=== PATIENT | female | born 1985 | race American Indian/Alaskan Native ===

== ENCOUNTER 2020-05-30 21:16 | Emergency (ER) | payer SELFPAY ==
[2020-05-30] MEDS ORDERED: HALOPERIDOL LACTATE 5 MG/1 ML INJ IM PRN (21:45)
[2020-05-30] MEDS ORDERED: levETIRAcetam 500 MG/5 ML ORAL LIQD PO ONE (21:46)
--- NOTE | 2020-05-30 21:59 | Emergency Department Report ---
<SHI BUTT - Last Filed: 05/31/20 04:55> ED General Adult HPI - General Chief complaint: Seizure Stated complaint: PSYCH EVAL PUI?: No Time Seen by Provider: 05/30/20 21:35 Source: patient, EMS ( EMS documentation not available at time of chart dictation ), RN notes reviewed Mode of arrival: Stretcher Limitations: Other (Patient is intoxicated disorganized and a poor historian) - History of Present Illness Initial comments: The patient was evaluated in the emergency department for symptoms described in the history of present illness. He/she was evaluated in the context of the global COVID-19 pandemic, which necessitated consideration that the patient might be at risk for infection with the virus that causes COVID-19. Institutional protocols and algorithms that pertain to the evaluation of patients at risk for COVID-19 are in a state of rapid change based on information released by regulatory bodies including the CDC and federal and state organizations. These policies and algorithms were followed during the patient's care in the emergency department. Please note that these policies, procedures and recommendations changed on a rapid basis. During the entire history and physical examination, I am chaperoned by nurse Selin Purvis The patient is a 35-year-old female. She is not known to myself previously. She is brought to the hospital by emergency medical services because of a possible seizure/convulsion. The patient states that she is not , and reports that she has not delivered or given in the past 6 months. Patient states that she has a history of seizures and depression. The patient thinks that she had a seizure but she is not sure. She thinks that she called 911 because she was trying to "get to the train station, and I did not have any money to get there." Patient denies physical pain. The patient has made some passive comments about wanting to harm herself. She is not forthcoming about this. She states she does not want to overdose. She states that she does not want to hurt other people. The patient is intoxicated and a poor historian, and therefore, has difficulty describing the exacerbating, relieving factors of her current presentation. The patient is not accompanied by friends or family at this time for additional information or collateral information. -: This evening Radiation: other Quality: other Consistency: other Improves with: other Worsens with: other Associated Symptoms: other - Related Data Home Medications Medication Instructions Recorded Confirmed Last Taken Gabapentin 300 mg PO BID 05/30/20 05/30/20 Unknown Zoloft 05/30/20 Unknown hydrOXYzine 50 mg PO BID PRN 05/30/20 05/30/20 Unknown levETIRAcetam [Keppra TAB] 750 mg PO BID 05/30/20 05/30/20 05/30/20 1000 traZODone [Desyrel] 50 mg PO QHS 05/30/20 05/30/20 Unknown Previous Rx's Medication Instructions Recorded Last Taken Type Multivitamin with Folic Acid [[facility] 400 mcg PO QDAY #30 tablet 05/30/20 Unknown Rx One Daily Essential Tablet] Potassium Chloride 20 meq PO QDAY #30 packet 05/30/20 Unknown Rx levETIRAcetam [Keppra TAB] 750 mg PO BID #60 tablet 05/30/20 Unknown Rx Allergies Allergy/AdvReac Type Severity Reaction Status Date / Time No Known Allergies Allergy Verified 05/30/20 21:50 ED Review of Systems Constitutional: see HPI Eyes: as per HPI ENT: as per HPI Respiratory: see HPI Cardiovascular: as per HPI Endocrine: see HPI Gastrointestinal: as per HPI Genitourinary: as per HPI Musculoskeletal: as per HPI Skin: as per HPI Neurological: as per HPI Psychiatric: as per HPI Hematological/Lymphatic: as per HPI ED Past Medical Hx - Past Medical History Previous Medical History?: Yes Hx Psychiatric Treatment: Yes (PTSD, ANXIETY, DEPRESSION) - Surgical History Past Surgical History?: No - Social History Smoking Status: Current Every Day Smoker Substance Use Type: Alcohol, Marijuana - Medications Home Medications: Home Medications Medication Instructions Recorded Confirmed Last Taken Type Gabapentin 300 mg PO BID 05/30/20 05/30/20 Unknown History Multivitamin with Folic Acid [[facility] 400 mcg PO QDAY #30 tablet 05/30/20 Unknown R x One Daily Essential Tablet] Potassium Chloride 20 meq PO QDAY #30 packet 05/30/20 Unknown Rx Zoloft 05/30/20 Unknown History hydrOXYzine 50 mg PO BID PRN 05/30/20 05/30/20 Unknown History levETIRAcetam [Keppra TAB] 750 mg PO BID 05/30/20 05/30/20 05/30/20 History 1000 levETIRAcetam [Keppra TAB] 750 mg PO BID #60 tablet 05/30/20 Unknown Rx traZODone [Desyrel] 50 mg PO QHS 05/30/20 05/30/20 Unknown History ED Physical Exam - General Limitations: Other (Intoxication, disorganized behavior, patient is a poor historian) General appearance: alert, appears intoxicated, anxious - Head Head exam: Present: atraumatic, normocephalic - Eye Eye exam: Present: normal appearance, PERRL, EOMI - ENT ENT exam: Present: normal exam, normal orophraynx, mucous membranes moist, normal external ear exam - Neck Neck exam: Present: normal inspection, full ROM. Absent: tenderness, meningismus - Respiratory Respiratory exam: Present: normal lung sounds bilaterally. Absent: respiratory distress - Cardiovascular Cardiovascular Exam: Present: regular rate, normal rhythm, normal heart sounds. Absent: bradycardia, tachycardia, irregular rhythm, systolic murmur, diastolic murmur, rubs, gallop - GI/Abdominal GI/Abdominal exam: Present: soft. Absent: distended, tenderness, guarding, rebound, rigid, pulsatile mass - Extremities Exam Extremities exam: Present: normal inspection, full ROM, other (2+ pulses noted in the bilateral upper and lower extremities. There is no palpable cord. negative Homans sign. Muscular compartments are soft. The pelvis is stable.). Absent: pedal edema, calf tenderness - Back Exam Back exam: Present: normal inspection. Absent: tenderness, CVA tenderness (R), CVA tenderness (L), paraspinal tenderness, vertebral tenderness - Neurological Exam Neurological exam: Present: other (No facial droop. Tongue midline. Extraocular movements intact bilaterally. Facial sensation intact to light touch in V1, V2, V3 distribution bilaterally. 5 and a 5 strength in 4 extremities. Sensation intact to light touch in 4 extremities.) - Psychiatric Psychiatric exam: Present: depressed, anxious - Skin Skin exam: Present: warm, dry, intact, normal color. Absent: rash ED Course - Reevaluation(s) Reevaluation #1: 05/30/20 22:46 Differential diagnosis, including but not limited to: Seizure, pseudoseizure, alcohol intoxication, drug-induced psychosis/disorganized behavior, intracranial injury, cervical spine injury Assessment and plan: 35-year-old female who is intoxicated, lacks decision- making capacity, who is no evidence of blunt or penetrating physical trauma on her examination, with reported history of seizure and/or convulsion. She also has endorsed nonspecific desire to harm herself. Patient is placed on hold status. Laboratory studies are reviewed and appreciated. We will continue patient's home anticonvulsant medications. Given history of seizure/convulsion, which is not corroborated by witness, we will obtain a CT scan of the brain and cervical spine, given patient's alcohol intoxication. We will replete the patient's potassium. Patient will be placed on seizure precautions, and have every 4 hour Accu-Cheks. A psychiatric consultation is requested. Urinalysis is pending. I anticipate that the patient's objective CT imaging will be negative for acute findings. I also anticipate that once the patient becomes clinically sober, if she is no longer articulating desire to harm herself, she may be discharged to follow-up with an outpatient primary care doctor. Psychiatry input is appreciated, their evaluation is pending at this time Reevaluation #2: 05/31/20 00:17 CT scan of the brain and cervical spine negative for acute findings. Patient resting comfortably in stretcher, and in no acute distress. No further convulsive events noted. Vital signs remained stable Urinalysis is pending at this time Reevaluation #3: 05/31/20 04:55 Patient reassessed multiple times. She has been sleeping comfortably in her stretcher for hours without clinical deterioration. No further convulsive events have been noted. We are awaiting a psychiatric evaluation Patient continues to remain medically suitable for psychiatric evaluation, consultation and placement, or, if they feel that the patient does not meet criteria for 1013, discharge once clinically sober ED Medical Decision Making - Lab Data Result diagrams: 05/30/20 21:55 05/30/20 21:55 Vital Signs 05/30/20 22:20 Temperature 97.9 F Pulse Rate 92 H Respiratory 18 Rate Blood Pressure 147/109 [Left] O2 Sat by Pulse 99 Oximetry Lab Results 05/30/20 05/30/20 05/30/20 Range/Units 21:55 21:55 21:55 WBC 5.3 (4.5-11.0) K/mm3 RBC 4.24 (3.65-5.03) M/mm3 Hgb 12.3 (10.1-14.3) gm/dl Hct 35.9 (30.3-42.9) % MCV 85 (79-97) fl MCH 29 (28-32) pg MCHC 34 (30-34) % RDW 15.5 H (13.2-15.2) % Plt Count 236 (140-440) K/mm3 Sodium 140 (137-145) mmol/L Potassium 3.2 L (3.6-5.0) mmol/L Chloride 99.2 (98-107) mmol/L Carbon Dioxide 23 (22-30) mmol/L Anion Gap 21 mmol/L BUN 5 L (7-17) mg/dL Creatinine 0.8 (0.6-1.2) mg/dL Estimated GFR > 60 ml/min BUN/Creatinine Ratio 6 % Glucose 80 (65-100) mg/dL Calcium 9.6 (8.4-10.2) mg/dL Magnesium 2.20 (1.7-2.3) mg/dL Total Creatine Kinase 288 H (30-135) units/L Salicylates 1.0 L (2.8-20.0) mg/dL Acetaminophen (10.0-30.0) ug/mL Plasma/Serum Alcohol (0-0.07) % 05/30/20 05/30/20 Range/Units 21:55 21:55 WBC (4.5-11.0) K/mm3 RBC (3.65-5.03) M/mm3 Hgb (10.1-14.3) gm/dl Hct (30.3-42.9) % MCV (79-97) fl MCH (28-32) pg MCHC (30-34) % RDW (13.2-15.2) % Plt Count (140-440) K/mm3 Sodium (137-145) mmol/L Potassium (3.6-5.0) mmol/L Chloride (98-107) mmol/L Carbon Dioxide (22-30) mmol/L Anion Gap mmol/L BUN (7-17) mg/dL Creatinine (0.6-1.2) mg/dL Estimated GFR ml/min BUN/Creatinine Ratio % Glucose (65-100) mg/dL Calcium (8.4-10.2) mg/dL Magnesium (1.7-2.3) mg/dL Total Creatine Kinase (30-135) units/L Salicylates (2.8-20.0) mg/dL Acetaminophen 5.0 L (10.0-30.0) ug/mL Plasma/Serum Alcohol 0.22 H (0-0.07) % Vital Signs 05/30/20 05/30/20 05/30/20 22:18 22:20 22:30 Temperature 97.9 F Pulse Rate 90 92 H 94 H Respiratory 15 18 19 Rate Blood Pressure 147/109 Blood Pressure 147/109 [Left] O2 Sat by Pulse 100 99 Oximetry 05/30/20 05/30/20 05/30/20 22:46 23:00 23:22 Temperature Pulse Rate 87 88 89 Respiratory 14 21 Rate Blood Pressure 147/109 Blood Pressure [Left] O2 Sat by Pulse 93 95 Oximetry 05/30/20 05/30/20 05/31/20 23:30 23:46 00:00 Temperature Pulse Rate 90 86 91 H Respiratory 19 Rate Blood Pressure 130/96 Blood Pressure [Left] O2 Sat by Pulse 98 100 96 Oximetry - EKG Data -: EKG Interpreted by Tx EKG shows normal: sinus rhythm Rate: normal - EKG Data When compared to previous EKG there are: previous EKG unavailable 05/30/20 23:32 Sinus rhythm, 90 bpm, left axis deviation, left anterior fascicular block, UTC prolonged, abnormal EKG, the EKG is not a STEMI. There is no prior EKG available for comparison - Radiology Data Radiology results: pending, report reviewed, image reviewed ED Disposition Clinical Impression: History of convulsions, Hypokalemia, Suicidal ideation Alcohol intoxication Qualifiers: Complication of substance-induced condition: uncomplicated Qualified Code(s): F10.920 - Alcohol use, unspecified with intoxication, uncomplicated Disposition: DC/TX-70 ANOTHER TYPE HLTHCARE Condition: Stable Additional Instructions: Do not drive or operate motor vehicles for the next 6 months. Follow-up with a primary care doctor or neurologist within the next 7 to 10 days. Avoid/minimize consumption of alcohol, and recreational drugs. Please make certain to take Keppra medication for convulsions/seizures. Noncompliance with Keppra/seizure medication may result in breakthrough seizure, which may lead to , disability, paralysis, loss of quality of life. Consumption of alcohol may impair decision-making, and can lower seizure threshold, and may lead to , disability, paralysis, loss of quality of life. Take an [id number] multivitamin with folic acid. Take the potassium supplementation as directed. Return to the emergency room right away with new, worsened or different symptoms, or symptoms not present on the initial emergency room evaluation. Next Prescriptions: Multivitamin with Folic Acid [Cvs One Daily Essential Tablet] 400 mcg PO QDAY #30 tablet levETIRAcetam [Keppra TAB] 750 mg PO BID #60 tablet Potassium Chloride 20 meq PO QDAY #30 packet Referrals: LEONARDO PARRA MD [Staff Physician] - 3-5 Days [facility] [Provider Group] - 3-5 Days <RADHA FROST - Last Filed: 05/31/20 14:41> ED Review of Systems ROS: Stated complaint: PSYCH EVAL Other details as noted in HPI ED Course Vital Signs 05/30/20 05/30/20 05/30/20 22:18 22:20 22:30 Temperature 97.9 F Pulse Rate 90 92 H 94 H Respiratory 15 18 19 Rate Blood Pressure 147/109 Blood Pressure 147/109 [Left] O2 Sat by Pulse 100 99 Oximetry 05/30/20 05/30/20 05/30/20 22:46 23:00 23:01 Temperature Pulse Rate 87 88 Respiratory 14 21 Rate Blood Pressure 147/109 149/100 Blood Pressure [Left] O2 Sat by Pulse 93 95 Oximetry 05/30/20 05/30/20 05/30/20 23:22 23:30 23:46 Temperature Pulse Rate 89 90 86 Respiratory 19 Rate Blood Pressure Blood Pressure [Left] O2 Sat by Pulse 98 100 Oximetry 05/31/20 05/31/20 05/31/20 00:00 00:02 00:16 Temperature Pulse Rate 91 H 87 88 Respiratory 21 Rate Blood Pressure 130/96 130/96 149/100 Blood Pressure [Left] O2 Sat by Pulse 96 97 98 Oximetry 05/31/20 05/31/20 05/31/20 00:30 00:46 01:00 Temperature Pulse Rate 90 96 H 99 H Respiratory 21 22 21 Rate Blood Pressure 111/70 111/70 119/70 Blood Pressure [Left] O2 Sat by Pulse 98 98 97 Oximetry 05/31/20 05/31/20 05/31/20 01:16 01:30 01:46 Temperature Pulse Rate Respiratory 21 21 Rate Blood Pressure 130/96 112/65 111/64 Blood Pressure [Left] O2 Sat by Pulse 98 98 97 Oximetry 05/31/20 05/31/20 05/31/20 02:00 02:30 03:00 Temperature Pulse Rate 102 H 98 H Respiratory 20 Rate Blood Pressure 116/73 108/73 Blood Pressure [Left] O2 Sat by Pulse 97 98 96 Oximetry 05/31/20 05/31/20 05/31/20 03:05 03:30 04:00 Temperature 97.4 F L Pulse Rate 101 H 99 H 97 H Respiratory 20 21 23 Rate Blood Pressure 108/73 111/72 Blood Pressure 116/73 [Left] O2 Sat by Pulse 98 96 97 Oximetry 05/31/20 05/31/20 05/31/20 04:30 05:00 05:30 Temperature Pulse Rate 97 H 93 H 88 Respiratory 22 20 22 Rate Blood Pressure 111/72 109/67 109/67 Blood Pressure [Left] O2 Sat by Pulse 95 96 96 Oximetry 05/31/20 05/31/20 05/31/20 06:00 06:30 07:38 Temperature 97.8 F Pulse Rate 92 H 92 H 69 Respiratory 20 22 20 Rate Blood Pressure 115/78 115/78 Blood Pressure 107/64 [Left] O2 Sat by Pulse 96 97 98 Oximetry - Reevaluation(s) Reevaluation #4: 05/31/20 14:37 Patient has been seen and evaluated by mental health security control assessor. Request has been made to place patient on 1013 based on the fact that patient is reporting suicidal ideations. ED Medical Decision Making - Lab Data Result diagrams: 05/30/20 21:55 05/30/20 21:55 Critical care attestation.: If time is entered above; I have spent that time in minutes in the direct care of this critically ill patient, excluding procedure time. ED Disposition Is pt being admited?: No
[2020-05-30] MEDS ORDERED: levETIRAcetam 500 MG TAB PO SCH (22:00)
[2020-05-30 22:24] LABS: Hematocrit 35.9 % (30.3-42.9); Hemoglobin 12.3 gm/dl (10.1-14.3); Mean Corpuscular HGB Conc 34 % (30-34); Mean Corpuscular Volume 85 fl (79-97); Platelet Count 236 K/mm3 (140-440); Red Blood Count 4.24 M/mm3 (3.65-5.03); Red Cell Distribution Width 15.5 % (13.2-15.2)
[2020-05-30 22:35] LABS: BUN/Creatinine Ratio 6; Blood Urea Nitrogen 5 mg/dL (7-17); Calcium 9.6 mg/dL (8.4-10.2); Hemolysis Index 5
[2020-05-30] MEDS ORDERED: POTASSIUM CHLORIDE ER 20 MEQ TAB PO ONE (22:41)
[2020-05-30] MEDS ORDERED: HYDROXYZINE 50 MG PO PRN (22:42)
[2020-05-30 22:47] LABS: Bilirubin,Urine NEG (Negative); Blood,Urine SM (Negative); Color,Urine Colorless (Yellow); Protein,Urine <15 mg/dL mg/dL (Negative); Urobilinogen,Urine < 2.0 mg/dL (<2.0); WBC,Urine < 1.0 /HPF (0.0-6.0)
[2020-05-30 22:52] LABS: Amphetamine Screen,Urine PRESUMPTIVE NEGATIVE; Benzodiazepines Screen,Urine PRESUMPTIVE NEGATIVE; Cannabinoid Screen,Urine PRESUMPTIVE NEGATIVE; Cocaine Screen,Urine PRESUMPTIVE NEGATIVE; Methadone Screen,Urine PRESUMPTIVE NEGATIVE; Opiate Screen,Urine PRESUMPTIVE NEGATIVE
[2020-05-30] MEDS: LORazepam 2 MG/ML VIAL IM PRN ×2 (22:54→23:50)
--- NOTE | 2020-05-30 23:33 | Cat Scan Report ---
CT head/brain wo con INDICATION: Seizure. TECHNIQUE: Routine CT head without contrast. All CT scans at this location are performed using CT dos e reduction for ALARA by means of automated exposure control. COMPARISON: None. FINDINGS: BRAIN / INTRACRANIAL CONTENTS: No acute hemorrhage, mass effect, midline shift, or hydrocephalus. No appreciable acute large territorial or lacunar infarct. No chronic infarct or focal atrophy. Normal b rain volume and ventricular/sulcal size for age. ORBITS: No significant abnormality of visualized orbits. SINUSES / MASTOIDS: No significant abnormality of visualized sinuses and mastoid air cells. ADDITIONAL FINDINGS: None. IMPRESSION: 1. No acute intracranial abnormality. Signer Name: Holden Neff MD Signed: 05/30/2020 11:28 PM Workstation Name: [id number]
--- NOTE | 2020-05-30 23:34 | Cat Scan Report ---
CT CERVICAL SPINE WITHOUT CONTRAST INDICATION: Seizure. TECHNIQUE: Axial CT images of the spine were obtained. Sagittal and coronal reformatted images were produced. Al l CT scans at this location are performed using CT dose reduction for ALARA by means of automated exp osure control. COMPARISON: None available. FINDINGS: ACUTE FRACTURE(S) OR SUBLUXATION: None. SPINAL DEGENERATIVE CHANGES: No significant degenerative changes. PARASPINAL SOFT TISSUES: No soft tissue swelling or other acute abnormalities. ADDITIONAL FINDINGS: No significant additional findings. IMPRESSION: 1. No acute fracture or subluxation in the spine in neutral position. Signer Name: Holden Neff MD Signed: 05/30/2020 11:29 PM Workstation Name: [id number]
[2020-05-31] MEDS ORDERED: NON-FORMULARY EACH (Levetiracetam [Keppra Tab] 750 MG) PO SCH (10:00)
[2020-05-31] MEDS: POTASSIUM CHLORIDE ER 20 MEQ TAB PO SCH (10:30)
[2020-05-31] MEDS: levETIRAcetam 500 MG TAB PO SCH ×2 (10:31→21:34)
[2020-05-31] MEDS: MULTIVITAMINS ,THERAPEUTIC TAB PO SCH (10:31)
[2020-05-31] MEDS: FOLIC ACID 1 MG TAB PO SCH (10:31)
[2020-06-01] MEDS: LORazepam 2 MG/ML VIAL IM PRN (07:49)
[2020-06-01] MEDS: MULTIVITAMINS ,THERAPEUTIC TAB PO SCH (09:44)
[2020-06-01] MEDS: levETIRAcetam 500 MG TAB PO SCH ×2 (09:44→23:58)
[2020-06-01] MEDS: FOLIC ACID 1 MG TAB PO SCH (09:45)
[2020-06-01] MEDS: POTASSIUM CHLORIDE ER 20 MEQ TAB PO SCH (09:48)
--- NOTE | 2020-06-01 09:57 | Consultation ---
History of Present Illness - Reason for Consult Consult date: 06/01/20 Reason for consult: suicidal thoughts - History of Present Psychiatric Illness Gabbi Maravilla is a 35y/o female patient who was said to have been brought to the ER after having seizure-like activity and thought she called 911 trying to get to a train station. During my interview with the patient she is sleeping. She arouses easily, but is uncooperative. She initially refuses to answer any questions. I had to leave and return and speak to the patient after she was awakened for breakfast. The patient makes poor eye contact. Her affect is flat. She is guarded and slow to respond. She is still reluctant to cooperate and has to be asked the same question several times. She says "why am I being asked the same questions again." She says she came to the ER for "having bad thoughts of hurting myself." She says "because I have seizures." She says she feels "depressed because of everything going on." She would not elaborate about what was going on. The patient states, "I'm just tired of living." She denies any illicit drug use, but states she drinks "sometimes." She states she has a past history of "depression and PTSD." The patient states she takes "zoloft and hydroxizine." She denies hallucinations of any kind. PAST PSYCHIATRIC HISTORY: Psychiatric Diagnoses: PTSD, Depression Suicide attempts or Self-harm behavior: Denies Prior psychiatric hospitalizations: Denies Substance Abuse history: Denies Previous psychiatric medications tried: Zoloft, hydroxizine Outpatient treatment: yes PAST MEDICAL HISTORY: Family Psychiatric History: None reported or documented SOCIAL HISTORY Marital Status: Single Living Arrangements: with sister Employment Status: Unemployed Access to guns/weapons: Denies Education: High school grad History of Abuse: none reported Legal History: Denies REVIEW OF SYSTEMS Constitutional: Negative for weight loss ENT: Negative for stridor Respiratory: Negative for cough or hemoptysis All other systems reviewed and are negative MENTAL STATUS EXAMINATION General Appearance: Dressed appropriately Behavior: Guarded, uncooperative Mood: "depressed" Affect and affective range: Flat Thought Process: goal directed Speech: low tone, slow to respond Suicidal Ideation: Yes Homicidal Ideation: Denies Hallucinations: Denies Delusions: None elicited Insight and Judgment: Limited Memory/Cognition: Limited Impulse control: Limited Attention: Normal Orientation: Alert, oriented x 3 Assessment Major Depressive Disorder, Severe w/o Psychotic Features PLAN 1013 Continue Hydroxizine 50mg po BID prn anxiety Start Trazodone 50mg po qhs Start Abilify 5mg po daily Start Zoloft 25mg po daily Sitter: Defer to primary Medical: Per primary Disposition: Recommend acute inpatient treatment Will follow. Thank you for this consult Medications and Allergies Allergies Allergy/AdvReac Type Severity Reaction Status Date / Time No Known Allergies Allergy Verified 05/30/20 21:50 Home Medications Medication Instructions Recorded Confirmed Last Taken Type Gabapentin 300 mg PO BID 05/30/20 05/30/20 Unknown History Multivitamin with Folic Acid [[facility] 400 mcg PO QDAY #30 tablet 05/30/20 Unknown Rx One Daily Essential Tablet] Potassium Chloride 20 meq PO QDAY #30 packet 05/30/20 Unknown Rx Zoloft 50 mg PO DAILY 05/30/20 06/01/20 Unknown History hydrOXYzine 50 mg PO BID PRN 05/30/20 05/30/20 Unknown History levETIRAcetam [Keppra TAB] 750 mg PO BID 05/30/20 05/30/20 05/30/20 History 1000 levETIRAcetam [Keppra TAB] 750 mg PO BID #60 tablet 05/30/20 Unknown Rx traZODone [Desyrel] 50 mg PO QHS 05/30/20 05/30/20 Unknown History Active Meds: Active Medications Folic Acid (Folvite) 1 mg PO QDAY [facility] Last Admin: 06/01/20 09:45 Dose: 1 mg Documented by: Haloperidol Lactate (Haldol) 5 mg IM Q6HR PRN PRN Reason: Agitation Hydroxyzine Pamoate (Vistaril) 50 mg PO BID PRN PRN Reason: Anxiety Levetiracetam (Keppra) 750 mg PO BID [facility] Last Admin: 06/01/20 09:44 Dose: 750 mg Documented by: Lorazepam (Ativan) 2 mg IM Q4HR PRN PRN Reason: Agitation Last Admin: 06/01/20 07:49 Dose: 2 mg Documented by: Multivitamins (Theragran Tab) 1 each PO QDAY [facility] Last Admin: 06/01/20 09:44 Dose: 1 each Documented by: Potassium Chloride (K-Dur) 40 meq PO QAM [facility] Last Admin: 06/01/20 09:48 Dose: 40 meq Documented by: Mental Status Exam - Vital signs Last Vital Signs Temp 98.1 F 06/01/20 07:22 Pulse 79 06/01/20 07:22 Resp 18 06/01/20 07:35 BP 118/85 06/01/20 07:22 Pulse Ox 99 06/01/20 07:35 Results Result Diagrams: 05/30/20 21:55 05/30/20 21:55 Abnormal lab results 05/31/20 06/01/20 Range/Units 16:26 02:15 POC Glucose 120 H 108 H (70-105) All other labs normal.
[2020-06-01] MEDS: SERTRALINE 25 MG TAB PO SCH (10:42)
[2020-06-01] MEDS: ARIPiprazole 5 MG TAB PO SCH (10:42)
[2020-06-01] MEDS: traZODone 50 MG TAB PO SCH (23:59)
[2020-06-02] MEDS: POTASSIUM CHLORIDE ER 20 MEQ TAB PO SCH (11:42)
[2020-06-02] MEDS: ARIPiprazole 5 MG TAB PO SCH (11:42)
[2020-06-02] MEDS: levETIRAcetam 500 MG TAB PO SCH ×2 (11:42→21:58)
[2020-06-02] MEDS: MULTIVITAMINS ,THERAPEUTIC TAB PO SCH (11:43)
[2020-06-02] MEDS: FOLIC ACID 1 MG TAB PO SCH (11:43)
[2020-06-02] MEDS: SERTRALINE 25 MG TAB PO SCH ×2 (11:46→13:00)
--- NOTE | 2020-06-02 12:10 | Progress Note ---
Subjective - Reason for Consult Consult date: 06/02/20 Reason for consult: MHE Requesting physician: SHI BUTT - Chief Complaint Chief complaint: PSYCH HPI Patient seen this AM in room, endorses persistent depressive mood, associated with thoughts of self harm. Patient also reports worsening anxiety says she takes zoloft and hydroxyzine for management. REVIEW OF SYSTEMS Constitutional: Negative for weight loss ENT: Negative for stridor Respiratory: Negative for cough or hemoptysis All other systems reviewed and are negative MENTAL STATUS EXAMINATION General Appearance and Behavior: Age appropriate,good hygiene, wearing appropriate clothes, lying in bed, poor eye contact, cooperative polite with questioning. Cooperation: Participating/engaged Psychomotor Behavior: unremarkable and within normal limits Mood: Depressed Affect and affective range: constricted, decreased range, depressed, Thought Process: Illogical Thought Content: Illogical, Speech: Normal volume, Regular rate and rhythm Intellectual Functioning: Average Suicidal Ideation: Suicidal Homicidal Ideation: Homicidal Impulse Control: Impaired Insight and Judgment: Limited insight and judgment Memory: Normal, Attention: Normal, Orientation: Alert, oriented, anxious Assessment and Plan - Patient Problems (1) Depression Current Visit: Yes Status: Acute Treatment Plan Continue current meds., zoloft increased MEDICATIONS: Risks, benefits and alternatives of medications discussed with the patient, questions answered and consent obtained from patient. PSYCHOTHERAPY: Supportive psychotherapy provided MEDICAL: Per primary team DELIRIUM PRECAUTIONS: Please re-orient patient frequently, keep lights on during the day, and minimize benzodiazepines and opiates as these medications could worsen patient's confusion. SWITCH TENDER: DISPOSITION: Recommend acute inpatient psychiatric hospitalization at this time LEGAL STATUS: 1013 FOLLOW-UP: Will follow Thank you for the consult. Please contact with any questions and/or concerns. Mental Status Exam - Vital signs Last Vital Signs Temp 98.0 F 06/02/20 07:49 Pulse 81 06/02/20 07:49 Resp 20 06/02/20 07:49 BP 128/86 06/02/20 07:49 Pulse Ox 98 06/02/20 07:49 Assessment and Plan - Patient Problems (1) Depression Current Visit: Yes Status: Acute
[2020-06-02] MEDS: LORazepam 2 MG/ML VIAL IM PRN (18:05)
[2020-06-02] MEDS: traZODone 50 MG TAB PO SCH (21:58)
[2020-06-03 07:40] VITALS: BP 122/88
[2020-06-03] MEDS: ARIPiprazole 5 MG TAB PO SCH (10:23)
[2020-06-03] MEDS: levETIRAcetam 500 MG TAB PO SCH (10:24)
[2020-06-03] MEDS: SERTRALINE 25 MG TAB PO SCH (10:25)
[2020-06-03] MEDS: MULTIVITAMINS ,THERAPEUTIC TAB PO SCH (10:25)
[2020-06-03] MEDS: FOLIC ACID 1 MG TAB PO SCH (10:26)
[2020-06-03] MEDS: POTASSIUM CHLORIDE ER 20 MEQ TAB PO SCH (10:26)
--- NOTE | 2020-06-03 11:20 | Progress Note ---
Subjective - Reason for Consult Consult date: 06/03/20 Reason for consult: MHE Requesting physician: SHI BUTT - Chief Complaint Chief complaint: PSYCH HPI Patient interviewed by me this AM, reports feeling much better, denies SI or HI and denies AVH. Patient says she still would like alcohol detox program and wants to go to the [facility] center when discharged. REVIEW OF SYSTEMS Constitutional: Negative for weight loss ENT: Negative for stridor Respiratory: Negative for cough or hemoptysis All other systems reviewed and are negative MENTAL STATUS EXAMINATION General Appearance and Behavior: Age appropriate,good hygiene, wearing appropriate clothes, lying in bed, poor eye contact, cooperative polite with questioning. Cooperation: Participating/engaged Psychomotor Behavior: unremarkable and within normal limits Mood: "im better" Affect and affective range: congruent with mood Thought Process: logical Thought Content: within reality Speech: Normal volume, Regular rate and rhythm Intellectual Functioning: Average Suicidal Ideation: denies Homicidal Ideation: denies Impulse Control: unimpaired Insight and Judgment: normal insight and judgment Memory: Normal, Attention: Normal, Orientation: Alert, oriented, anxious Assessment and Plan - Patient Problems (1) Depression Current Visit: Yes Status: Acute Treatment Plan Continue current meds., Outpt alcohol detox MEDICATIONS: Risks, benefits and alternatives of medications discussed with the patient, questions answered and consent obtained from patient. PSYCHOTHERAPY: Supportive psychotherapy provided MEDICAL: Per primary team DELIRIUM PRECAUTIONS: Please re-orient patient frequently, keep lights on during the day, and minimize benzodiazepines and opiates as these medications could worsen patient's confusion. WET SANDER: DISPOSITION: Do not recommend acute inpatient psychiatric hospitalization at this time. Safety discharge LEGAL STATUS: 1013 rescinded FOLLOW-UP: Will sign off Thank you for the consult. Please contact with any questions and/or concerns. Mental Status Exam - Vital signs Last Vital Signs Temp 98.3 F 06/03/20 07:39 Pulse 87 06/03/20 07:39 Resp 17 06/03/20 07:39 BP 122/88 06/03/20 07:39 Pulse Ox 99 06/03/20 07:39 Assessment and Plan - Patient Problems (1) Depression Status: Acute
== END 2020-06-03 13:30 | disposition home or self-care (01) ==
LOC: EEVIPCON 21:16 → ED 21:16
DX: E87.6 Hypokalemia (principal); F10.920 Alcohol use, unspecified with intoxication, uncomplicated; R56.9 Unspecified convulsions; F41.9 Anxiety disorder, unspecified; F32.9 Major depressive disorder, single episode, unspecified; F17.200 Nicotine dependence, unspecified, uncomplicated; F12.10 Cannabis abuse, uncomplicated; Z79.899 Other long term (current) drug therapy
CPT/HCPCS: 36415; 70450; 72125; 80048; 80307; 81001; 82550; 82962; 83735; 84702; 85027; 93005; 96372; 99285; J2060; J3246; 80320; G0480

== ENCOUNTER 2020-06-03 19:11 | Emergency (ER) | payer SELFPAY ==
[2020-06-03 20:18] LABS: Basophils # (Auto) 0.1 K/mm3 (0.0-0.1); Basophils % (Auto) 1.3 % (0.0-1.8); Eosinophils # (Auto) 0.1 K/mm3 (0.0-0.4); Eosinophils % (Auto) 1.1 % (0.0-4.3); Hematocrit 38.3 % (30.3-42.9); Hemoglobin 12.5 gm/dl (10.1-14.3); Lymphocytes # (Auto) 1.6 K/mm3 (1.2-5.4); Lymphocytes % (Auto) 32.2 % (13.4-35.0); Mean Corpuscular HGB Conc 33 % (30-34); Mean Corpuscular Volume 88 fl (79-97); Monocytes # (Auto) 0.4 K/mm3 (0.0-0.8); Monocytes % (Auto) 7.2 % (0.0-7.3); Platelet Count 210 K/mm3 (140-440); Red Blood Count 4.37 M/mm3 (3.65-5.03); Red Cell Distribution Width 15.6 % (13.2-15.2)
[2020-06-03 20:21] LABS: Bilirubin,Urine NEG (Negative); Blood,Urine NEG (Negative); Color,Urine Yellow (Yellow); Mucus,Urine FEW /HPF; Protein,Urine <15 mg/dL mg/dL (Negative); Urobilinogen,Urine < 2.0 mg/dL (<2.0)
[2020-06-03 20:37] LABS: Blood Urea Nitrogen 16 mg/dL (7-17); Calcium 9.7 mg/dL (8.4-10.2); Hemolysis Index 8
[2020-06-03 20:38] LABS: BUN/Creatinine Ratio 23
--- NOTE | 2020-06-03 20:49 | Emergency Department Report ---
Chief Complaint: Psych Stated Complaint: MH/SUICIDAL THOUGHTS Time Seen by Provider: 06/03/20 20:44 - HPI History of Present Illness: Chief complaint: "I was just called back." HPI this is a 35-year-old female with history of depression alcohol dependence who was evaluated by our psychiatric team over the course of the previous 4 days since May 30. Inpatient stabilization was not recommended. She was stabilized 24-day during the 4-day treatment stay while in the emergency department. She was unable to charge her [employer] phone cell phone. She became stressed out. Consequently she went back to the triage nurse for assistance. While waiting to be called back to the emergency department she was communicating with her sister only in line for transportation. She currently does not have suicidal ideation. She does not have a plan to harm herself. She has housing arranged through the [facility] which will begin on Friday. She has a supportive sister who will assist her with transportation. Medical screening exam performed and completed. Labs ordered per triage protocol reviewed with exception of alcohol level at the legal limit. - Exam Vital Signs: Vital Signs 06/03/20 19:32 Temperature 99.2 F Pulse Rate 112 H Respiratory 18 Rate Blood Pressure 133/103 [Left] O2 Sat by Pulse 98 Oximetry MSE screening note: Focused history and physical exam performed. Due to findings the following was ordered: ED Medical Decision Making - Lab Data Result diagrams: 06/03/20 19:51 06/03/20 19:51 ED Disposition for MSE Clinical Impression: Encounter for medical screening examination Disposition: Z-07 MED SCREENING EXAM-LEFT Condition: Stable
[2020-06-03 20:52] LABS: Amphetamine Screen,Urine PRESUMPTIVE NEGATIVE; Benzodiazepines Screen,Urine PRESUMPTIVE NEGATIVE; Cannabinoid Screen,Urine PRESUMPTIVE NEGATIVE; Cocaine Screen,Urine PRESUMPTIVE NEGATIVE; Methadone Screen,Urine PRESUMPTIVE NEGATIVE; Opiate Screen,Urine PRESUMPTIVE NEGATIVE
[2020-06-03 21:42] VITALS: BP 136/100
== END 2020-06-03 21:43 | disposition left against medical advice (07) ==
LOC: ED 19:11
DX: F10.20 Alcohol dependence, uncomplicated (principal); Z53.21 Procedure and treatment not carried out due to patient leaving prior to being seen by health care provider
CPT/HCPCS: 36415; 80048; 80307; 80320; 81001; 84703; 85025; G0480